=== PATIENT | female | born 1935 | race Hispanic/Latino ===

== ENCOUNTER 2018-08-30 11:50 | Emergency (ER) | payer MEDICARE ==
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
[2018-08-30 13:50] LABS: #Eosinphils 0.1 thou/uL (0.0-0.7); #Lymphocytes 2.3 thou/uL (1.20-3.40); #Monocytes 0.7 thou/uL (0.11-0.59); #Neutrophils 5.9 thou/uL (1.40-6.50); %Basophils 0.4 % (0.0-1.0); %Eosinophils 1.5 % (0.0-10.0); %Lymphocytes 25.4 % (21.0-51.0); %Monocytes 7.6 % (0.0-10.0); %Neutrophils 65.1 % (42.0-75.0); Hemoglobin 15.7 g/dL (12.0-16.0); Mean Corpuscular HGB CONC 32.8 g/dL (32.0-36.0); Mean Corpuscular Hemoglobin 30.1 pg (27.0-31.0); Mean Corpuscular Volume 91.7 fL (78.0-98.0); Mean Platelet Volume 8.8 fL (7.4-10.4); Platelet Count 196 thou/uL (130-400); RBC Distribution Width 12.3 % (11.5-14.5); Red Blood Cell (RBC) Count 5.22 mill/uL (4.20-5.40)
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
[2018-08-30 14:04] LABS: Albumin 4.5 g/dL (3.4-4.8); Anion Gap 13 mmol/L (10-20); Bilirubin, Total 0.5 mg/dL (0.2-1.2); Calcium 9.7 mg/dL (7.8-10.44); Carbon Dioxide 25 mmol/L (23-31); Chloride 107 mmol/L (98-107); Glucose 87 mg/dL (83-110); Potassium 4.2 mmol/L (3.5-5.1); Protein, Total 7.5 g/dL (6.0-8.3); Sodium 141 mmol/L (136-145)
[2018-08-30 14:18] LABS: ALT (SGPT) 20 U/L (8-55); AST (SGOT) 22 U/L (5-34); Alkaline Phosphatase 87 U/L (40-150); BUN (Urea Nitrogen) 15 mg/dL (9.8-20.1); Calc. Creatinine Clearance 0 mL/min (70-130); Estimated GFR-MDRD 73
[2018-08-30 14:47] LABS: Bilirubin Negative (Negative); Blood, Urine Negative (Negative); Clarity CLEAR (Clear); Glucose, Urine (Dipstick) Negative (Negative); Leukocyte Negative (Negative); Nitrite Negative (Negative); Protein, Urine (Dipstick) Negative (Neg-Trace); Specific Gravity, Urine 1.011 (1.002-1.036); Urobilinogen 0.2 mg/dL (0.2-1.0)
--- NOTE | 2018-09-01 13:58 | EKG ---
Test Reason : Blood Pressure : / mmHG Vent. Rate : 067 BPM Atrial Rate : 067 BPM P-R Int : 158 ms QRS Dur : 096 ms QT Int : 406 ms P-R-T Axes : 046 -50 036 degrees QTc Int : 429 ms Normal sinus rhythm Left axis deviation Septal infarct , age undetermined Abnormal ECG Confirmed by MARCEL CASTILLO D.O. ([id number]), film or videotape editor BELLA WILLIS ([id number]) on 09/01/2018 1:58:01 PM Referred By: Confirmed By:MARCEL CASTILLO D.O.
== END 2018-08-30 14:59 | disposition home or self-care (01) ==
LOC: ERS 11:50
DX: S16.1XXA Strain of muscle, fascia and tendon at neck level, initial encounter (principal); M25.562 Pain in left knee; V89.2XXA Person injured in unspecified motor-vehicle accident, traffic, initial encounter
CPT/HCPCS: 36415; 70450; 71045; 72072; 72100; 72125; 72170; 80053; 81003; 83605; 84484; 85025; 87086; 93005

== ENCOUNTER 2020-03-06 04:29 | Inpatient (IN) | payer MEDICARE, MEDICAID ==
--- NOTE | 2020-03-06 04:50 | PDOC.HHP ---
Hospitalist HPI - History of Present Illness Chest pain/ ACS rule out History of Present Illness: Patient with PMH of HTN presents to ED as a transfer for evaluation of chest pain and abdominal pain. Tells me that over the last 1 week she has been having some vague abdominal discomfort. She is unable to fully describe the feeling. Tells me that abdominal discomfort is generalized in nature. She denies any other symptoms such as fever, chills, nausea, vomiting or diarrhea. Yesterday she started experiencing a slightly different feeling with epigastric/ substernal discomfort that radiated to chest. Chest discomfort associated with mild diaphoresis and shortness of breath. Does refer some degree of dyspnea on exertion at bases. Evaluation at transferring facility reveals marginal troponin of 0.025 & repeat trop of 0.05. EKG with non specific changes but no evidence of STEMI. Her vital signs reveal BP in the 170s systolic. Hospitalist ROS - Review of Systems Constitutional: reports: sweats. denies: fever, chills, weakness, malaise Eyes: denies: pain, conjunctivae inflammation, eyelid inflammation ENT: denies: ear pain, ear discharge, nose pain, nose discharge, nose congestion Respiratory: reports: shortness of breath, SOB with excertion. denies: cough, pleuritic pain, sputum Cardiovascular: reports: chest pain. denies: palpitations, orthopnea, paroxysmal noc. dyspnea, edema, light headedness Gastrointestinal: denies: nausea, vomiting, abdominal pain, diarrhea Genitourinary: denies: dysuria, frequency, incontinence, hematuria Musculoskeletal: denies: neck pain, shoulder pain, arm pain, back pain Skin: denies: rash, lesions, francis Neurological: denies: weakness, numbness, incoordination - Exam General Appearance: NAD, awake alert Eye: PERRL, anicteric sclera ENT: normocephalic atraumatic Neck: supple, symmetric, no JVD Heart: RRR, no murmur, no gallops Respiratory: CTAB, no wheezes, no rales, no ronchi Gastrointestinal: soft, no guarding, no rigidity, tender to palpation Gastrointestinal - other findings: Diffuse mild abd tenderness Extremities: negative: no cyanosis, no clubbing, no edema Skin: normal turgor, no lesions Hospitalist Results - Labs Lab results: Troponin 0.025, repeat trop. 0.05. Hospitalist H&P A/P - Plan Plan: Problem List 1. Chest pain 2. Abdominal pain 3. History of hypertension 4. Medication non compliance Assessment/Plan 1. Chest pain - admit for observation/ACS rule out - currently her discomfort appears more localized to abdomen - does have marginal elevation of troponin at 0.05 - no clear evidence of acute ischemia on EKG - will trend cardiac enzymes - check lipid profile and A1C - pending troponin tren will proceed with stress test - check echocardiogram - continue with ASA daily - pending above will consider cardiology consult 2. Abdominal pain - tender abdomen but non surgical - denies any NVD, no fever or chills - Trial of Pepcid - pending progression can consider US 3. History of hypertension - refers having been treated in the hospital in the past for HTN - currently refers taking no medications - BP is currently elevated in the 170s - will restart old medications (amlodipine and losartan) 4. Medication non compliance - she was counseled DVT PPX: Lovenox
[2020-03-06] MEDS ORDERED: Morphine 2 MG/ML SYRINGE SLOW IVP PRN (05:05)
[2020-03-06] MEDS ORDERED: Ondansetron PF 4 MG/2 ML Vial IVP PRN (05:05)
[2020-03-06] MEDS ORDERED: Acetaminophen 325 MG TAB PO PRN (05:05)
[2020-03-06 05:38] LABS: Troponin I 0.087 ng/mL (< 0.028)
[2020-03-06 06:21] VITALS: BMI 30.7
[2020-03-06] MEDS ORDERED: Prevnar 13-Val Conj/PF 0.5 ML SYRINGE IM ONE (06:45)
[2020-03-06 06:56] LABS: Hemoglobin A1c 5.5 % (4.0-6.0)
[2020-03-06] MEDS: Nitroglycerin 2% Ointment 1 INCH/1 GM Packet TOP SCH ×3 (07:11→20:33)
[2020-03-06 07:21] LABS: Cardiac Risk 3.6 (Less than 4.5)
[2020-03-06 07:25] LABS: Troponin I 0.092 ng/mL (< 0.028)
[2020-03-06] MEDS ORDERED: Enoxaparin Sodium 40 MG/0.4 ML SYRINGE SC SCH (09:00)
[2020-03-06] MEDS ORDERED: Aspirin 81 mg Enteric Coated Tablet PO SCH (10:45)
[2020-03-06 11:37] LABS: Troponin I 0.067 ng/mL (< 0.028)
--- NOTE | 2020-03-06 11:43 | CON ---
DATE OF CONSULTATION: REASON FOR CONSULTATION: Chest and abdominal pressure, indeterminate troponin. HISTORY OF PRESENT ILLNESS: Ms. Sales is an 84-year-old woman. The patient states yesterday she had discomfort in her left upper chest, then it went all the way around to her abdomen and then back up into her chest. She came to the emergency room. She is found to have indeterminate troponins. She said she has had some type of similar pain in the past, but much less severe. The patient was here in the hospital. She said 3 years ago, at that time had some symptoms of discomfort, but predominantly she has had severe hypertension, she tells me. Otherwise, she has been active and healthy. MEDICATIONS: At home, she was taking medication for hypertension. The list currently, however, unfortunately is not in the computer. ALLERGIES: TO PENICILLIN. REVIEW OF SYSTEMS: CONSTITUTIONAL: No significant weight gain or loss. VISION: No changes. HEARING: No changes. PULMONARY: No cough or wheezing. GASTROINTESTINAL: No nausea, vomiting, or diarrhea. SKIN: No rashes. NEUROLOGIC: No unilateral or numbness. PSYCHIATRIC: No unusual depression or anxiety. HEMATOLOGIC: No unusual bruising. GENITOURINARY: No burning with urination. SOCIAL HISTORY: No alcohol or tobacco. FAMILY HISTORY: Noncontributory. PHYSICAL EXAMINATION: GENERAL: This is a pleasant elderly woman, in no distress. VITAL SIGNS: Blood pressure 140/66, pulse 52 and sinus. HEENT: Eyes; sclerae are nonicteric. NECK: Neck veins are normal. Carotid with normal upstrokes. LUNGS: Clear. CARDIAC: Normal S1. Normal S2. There is no murmur, rub, or gallop. ABDOMEN: Soft and nontender. No hepatosplenomegaly. EXTREMITIES: No clubbing or cyanosis. There is no edema. HEMATOLOGIC: No unusual bruising. GENITOURINARY: No burning with urination. DIAGNOSTIC DATA: EKG, sinus bradycardia, no acute changes. Troponin levels indeterminate, 0.092. ASSESSMENT: 1. History of hypertension. 2. Chest discomfort suspicious for angina. 3. Indeterminate troponin. PLAN: 1. She is scheduled for stress test for further risk stratification tomorrow. 2. We will add daily aspirin. 3. She is on nitrates. We will follow with you. Job ID: [id number]
[2020-03-06] MEDS: Amlodipine 5 MG TAB PO SCH (12:21)
[2020-03-06] MEDS: Losartan 25 MG TAB PO SCH (12:21)
[2020-03-06] MEDS: Enoxaparin Sodium 40 MG/0.4 ML SYRINGE SC SCH (20:32)
[2020-03-07 04:18] LABS: #Basophils 0.1 thou/uL (0.0-0.2); #Eosinphils 0.2 thou/uL (0.0-0.7); #Lymphocytes 1.7 thou/uL (1.20-3.40); #Monocytes 0.5 thou/uL (0.11-0.59); #Neutrophils 3.9 thou/uL (1.40-6.50); %Basophils 1.3 % (0.0-1.0); %Eosinophils 3.3 % (0.0-10.0); %Lymphocytes 26.8 % (21.0-51.0); %Monocytes 8.2 % (0.0-10.0); %Neutrophils 60.5 % (42.0-75.0); Hemoglobin 14.5 g/dL (12.0-16.0); Mean Corpuscular Hemoglobin 29.5 pg (27.0-31.0); Mean Platelet Volume 9.3 fL (7.4-10.4); Platelet Count 171 thou/uL (130-400); RBC Distribution Width 12.6 % (11.5-14.5); Red Blood Cell (RBC) Count 4.94 mill/uL (4.20-5.40); White Blood Cell (WBC) Count 6.4 thou/uL (4.8-10.8)
[2020-03-07 04:35] LABS: Anion Gap 9 mmol/L (10-20); BUN (Urea Nitrogen) 15 mg/dL (9.8-20.1); Calc. Creatinine Clearance 66 mL/min (70-130); Calcium 8.6 mg/dL (7.8-10.44); Carbon Dioxide 27 mmol/L (23-31); Chloride 107 mmol/L (98-107); Estimated GFR-MDRD 78; Glucose 97 mg/dL (83-110); Potassium 3.9 mmol/L (3.5-5.1); Sodium 139 mmol/L (136-145)
[2020-03-07] MEDS: Nitroglycerin 2% Ointment 1 INCH/1 GM Packet TOP SCH ×3 (05:48→20:28)
[2020-03-07] MEDS ORDERED: Regadenoson 0.4 MG/5 ML SYRINGE ONE (09:15)
--- NOTE | 2020-03-07 12:14 | NM ---
CARDIAC SPECT: CLINICAL HISTORY: 84-year-old female with chest pain. TECHNIQUE: A myocardial perfusion scan was performed using the single isotope one day protocol with technetium-9 9m sestamibi. 10 mCi were injected intravenously for the rest exam followed by 30 mCi for the stress exam. Pharmacologic stress with Lexiscan was monitored and interpreted by Dr. Parmar. FINDINGS: Homogeneous tracer distribution is seen in the myocardial segments on stress and rest images. The TID ratio is 1.50. GATED SPECT LVEF: 79%. WALL MOTION EXAM: Normal. IMPRESSION: TID ratio is 1.50. Clinical correlation is recommended. POS: [facility]
[2020-03-07] MEDS: Amlodipine 5 MG TAB PO SCH (12:19)
[2020-03-07] MEDS: Aspirin 81 mg Enteric Coated Tablet PO SCH (12:22)
[2020-03-07] MEDS: Enoxaparin Sodium 40 MG/0.4 ML SYRINGE SC SCH ×2 (12:23→20:38)
[2020-03-07] MEDS: Losartan 25 MG TAB PO SCH (12:23)
[2020-03-07] MEDS ORDERED: Communication Order-Pharmacy FS SCH (13:00)
--- NOTE | 2020-03-07 13:17 | PRG ---
DATE OF SERVICE: 03/07/2020 SUBJECTIVE: Ms. Sales had a stress testing today. She had a lot of chest pain during the test. There were no EKG changes, but she had to be given aminophylline for resolution of her chest tightness. Her symptoms otherwise have resolved, feels better. OBJECTIVE: VITAL SIGNS: Her blood pressure is 149/70 and pulse is 70. LUNGS: Clear. CARDIAC: Normal S1, normal S2. ABDOMEN: Soft and nontender. DIAGNOSTIC DATA: Stress test revealed homogeneous tracer uptake with a transient ischemic dilatation, 1.5. ASSESSMENT: 1. Abnormal stress test in terms of transient ischemic dilatation and chest pain during the test. 2. Strong risk factors for coronary artery disease. PLAN: Proceed with catheterization on Monday. Discussed risk of stroke, heart attack, iodine allergy, loss of blood supply to leg or kidney, stent thrombosis and stent restenoses, all discussed. The patient and family member understand and wished to proceed. This will be scheduled for Monday. Job ID: [id number]
--- NOTE | 2020-03-07 15:17 | EKG ---
Test Reason : CP Blood Pressure : / mmHG Vent. Rate : 053 BPM Atrial Rate : 053 BPM P-R Int : 160 ms QRS Dur : 080 ms QT Int : 410 ms P-R-T Axes : 027 -44 052 degrees QTc Int : 384 ms Sinus bradycardia Left axis deviation Septal infarct , age undetermined Abnormal ECG Confirmed by JOHN BROWN M.D. ([id number]), assignment desk editor BELLA WILLIS ([id number]) on 03/07/2020 3:16:59 PM Referred By: Confirmed By:JOHN BROWN M.D.
[2020-03-07] MEDS: Rosuvastatin 20 MG TAB PO SCH (20:37)
--- NOTE | 2020-03-07 21:04 | PDOC.HOSPP ---
- Subjective Encounter Date: 03/07/20 - Objective Vital Signs & Weight: Vital Signs (12 hours) Temp Pulse Resp BP BP Pulse Ox 03/07/20 19:00 98.6 F 70 16 120/59 L 96 03/07/20 15:15 97.8 F 69 14 122/59 L 97 03/07/20 12:14 97.9 F 73 18 149/70 H 97 Weight Weight 153 lb 12.8 oz I&O: 03/06/20 03/07/20 03/08/20 06:59 06:59 06:59 Intake Total 480 1600 Output Total 550 Balance -70 1600 Result Diagrams: 03/07/20 04:04 03/07/20 04:04 Hospitalist ROS - Medication Medications: Active Medications Generic Name Dose Route Start Last Admin Trade Name Freq PRN Reason Stop Dose Admin Amlodipine Besylate 2.5 mg 03/06/20 09:00 03/07/20 12:19 Norvasc PO 2.5 mg DAILY ADRIEN Administration Aspirin 81 mg 03/07/20 09:00 03/07/20 12:22 Ecotrin PO 81 mg DAILY ADRIEN Administration Enoxaparin Sodium 40 mg 03/06/20 21:00 03/07/20 20:38 Lovenox SC 03/08/20 21:01 40 mg 0900,2100 ADRIEN Administration Losartan Potassium 12.5 mg 03/06/20 09:00 03/07/20 12:23 Cozaar PO 12.5 mg DAILY ADRIEN Administration Nitroglycerin 0.5 inch 03/06/20 06:00 03/07/20 20:28 Nitro-Bid 2% Ointment TOP Not Given Q8HR ADRIEN Pantoprazole Sodium 40 mg 03/06/20 09:00 03/07/20 12:23 Protonix PO 40 mg DAILY ADRIEN Administration Rosuvastatin Calcium 20 mg 03/07/20 21:00 03/07/20 20:37 Crestor PO 20 mg HS ADRIEN Administration Sodium Chloride 10 ml 03/06/20 09:00 03/07/20 12:24 Flush - Normal Saline IVF 10 ml Q12HR ADRIEN Administration - Exam General Appearance: awake alert ENT: normocephalic atraumatic Neck: supple Heart: RRR Respiratory: normal chest expansion, no tachypnea Gastrointestinal: soft, non-tender, non-distended, normal bowel sounds Hosp A/P (1) Chest pain Code(s): R07.9 - CHEST PAIN, UNSPECIFIED Status: Acute (2) Hypertensive urgency Code(s): I16.0 - HYPERTENSIVE URGENCY Status: Acute (3) Palpitations Code(s): R00.2 - PALPITATIONS Status: Acute - Plan Chest pain with abnormal stress test. Cardiac cath planned on Monday. Continue aspirin, Crestor, enoxaparin, losartan and nitroglycerin.
[2020-03-07] MEDS ORDERED: Nitroglycerin 0.4 MG TAB (25 Tab Bottle) SL PRN (21:06)
[2020-03-08] MEDS: Nitroglycerin 2% Ointment 1 INCH/1 GM Packet TOP SCH ×3 (05:02→20:49)
[2020-03-08] MEDS: Amlodipine 5 MG TAB PO SCH (09:03)
[2020-03-08] MEDS: Aspirin 81 mg Enteric Coated Tablet PO SCH (09:04)
[2020-03-08] MEDS: Enoxaparin Sodium 40 MG/0.4 ML SYRINGE SC SCH ×2 (09:04→20:51)
[2020-03-08] MEDS: Losartan 25 MG TAB PO SCH (09:05)
--- NOTE | 2020-03-08 19:22 | PDOC.HOSPP ---
- Subjective Encounter Date: 03/08/20 Subjective: Denies chest pain or SOB. - Objective Vital Signs & Weight: Vital Signs (12 hours) Temp Pulse Resp BP BP Pulse Ox 03/08/20 15:31 97.6 F 63 18 134/62 98 03/08/20 11:56 98.1 F 82 16 138/68 96 Weight Weight 156 lb 1.6 oz I&O: 03/07/20 03/08/20 03/09/20 06:59 06:59 06:59 Intake Total 480 1840 960 Output Total 550 Balance -70 1840 960 Result Diagrams: 03/07/20 04:04 03/07/20 04:04 Hospitalist ROS - Medication Medications: Active Medications Generic Name Dose Route Start Last Admin Trade Name Sweetie PRN Reason Stop Dose Admin Amlodipine Besylate 2.5 mg 03/06/20 09:00 03/08/20 09:03 Norvasc PO 2.5 mg DAILY ADRIEN Administration Aspirin 81 mg 03/07/20 09:00 03/08/20 09:04 Ecotrin PO 81 mg DAILY ADRIEN Administration Enoxaparin Sodium 40 mg 03/06/20 21:00 03/08/20 09:04 Lovenox SC 03/08/20 21:01 40 mg 0900,2100 ADRIEN Administration Losartan Potassium 12.5 mg 03/06/20 09:00 03/08/20 09:05 Cozaar PO 12.5 mg DAILY ADRIEN Administration Nitroglycerin 0.5 inch 03/06/20 06:00 03/08/20 13:03 Nitro-Bid 2% Ointment TOP Not Given Q8HR ADRIEN Pantoprazole Sodium 40 mg 03/06/20 09:00 03/08/20 09:05 Protonix PO 40 mg DAILY ADRIEN Administration Rosuvastatin Calcium 20 mg 03/07/20 21:00 03/07/20 20:37 Crestor PO 20 mg HS ADRIEN Administration Sodium Chloride 10 ml 03/06/20 09:00 03/08/20 09:06 Flush - Normal Saline IVF 10 ml Q12HR ADRIEN Administration - Exam General Appearance: awake alert ENT: normocephalic atraumatic Neck: supple, no JVD Heart: RRR Respiratory: CTAB Gastrointestinal: soft, non-tender, non-distended, normal bowel sounds Neurological: cranial nerve grossly intact, no focal deficits Hosp A/P (1) Chest pain Code(s): R07.9 - CHEST PAIN, UNSPECIFIED Status: Acute (2) Hypertensive urgency Code(s): I16.0 - HYPERTENSIVE URGENCY Status: Acute (3) Palpitations Code(s): R00.2 - PALPITATIONS Status: Acute - Plan Chest pain with abnormal stress test. Cardiac cath tomorrow. Continue aspirin, Crestor, enoxaparin, losartan and nitroglycerin.
[2020-03-08] MEDS: Rosuvastatin 20 MG TAB PO SCH (20:51)
[2020-03-09 05:05] LABS: Anion Gap 11 mmol/L (10-20); BUN (Urea Nitrogen) 17 mg/dL (9.8-20.1); Calc. Creatinine Clearance 52 mL/min (70-130); Calcium 8.9 mg/dL (7.8-10.44); Carbon Dioxide 27 mmol/L (23-31); Chloride 107 mmol/L (98-107); Estimated GFR-MDRD 60; Glucose 101 mg/dL (83-110); Potassium 3.8 mmol/L (3.5-5.1); Sodium 141 mmol/L (136-145)
[2020-03-09] MEDS: Sodium Chloride 0.9% 1,000 ML IV SCH ×2 (05:17→16:21)
[2020-03-09] MEDS: Nitroglycerin 2% Ointment 1 INCH/1 GM Packet TOP SCH ×3 (05:17→21:35)
[2020-03-09] MEDS: Aspirin 81 mg Enteric Coated Tablet PO SCH (05:18)
[2020-03-09] MEDS: Amlodipine 5 MG TAB PO SCH (05:18)
[2020-03-09] MEDS: Losartan 25 MG TAB PO SCH (05:18)
[2020-03-09] MEDS ORDERED: Nitroglycerin 4.9 GM Bottle ONE (08:56)
[2020-03-09] MEDS ORDERED: Iopamidol 370 76% 100 ML VIAL ONE (09:20)
[2020-03-09] MEDS ORDERED: Sodium Chloride 0.9% 200 ML IV PRN (09:36)
[2020-03-09] MEDS ORDERED: Acetaminophen/Codeine 30-300mg Tablet PO PRN ×2 (09:36)
[2020-03-09] MEDS ORDERED: Nitroglycerin 0.4 MG TAB (25 Tab Bottle) SL PRN (09:36)
[2020-03-09 11:08] LABS: Eosinophils 3 % (0-10); Hemoglobin 14.4 g/dL (12.0-16.0); Lymphocytes 19 % (21-51); MDiff Complete? YES; Mean Corpuscular Hemoglobin 31.4 pg (27.0-31.0); Mean Corpuscular Volume 92.4 fL (78.0-98.0); Mean Platelet Volume 9.3 fL (7.4-10.4); Monocytes 10 % (0-10); Neutrophil 68 % (42-75); Platelet Count 168 thou/uL (130-400); Platelet Morphology Comment Appears Adequate; RBC Distribution Width 12.5 % (11.5-14.5); White Blood Cell (WBC) Count 8.2 thou/uL (4.8-10.8)
--- NOTE | 2020-03-09 15:09 | PDOC.HOSPP ---
- Subjective Encounter Date: 03/09/20 Encounter Time: 14:00 Subjective: Patient seen and examined for CP/USA. No CP. s/p Cath. No new complaints. No overnight events - Objective Vital Signs & Weight: Vital Signs (12 hours) Temp Pulse Resp BP Pulse Ox 03/09/20 12:45 97.9 F 77 18 143/66 H 98 03/09/20 08:01 97.6 F 65 18 136/89 99 03/09/20 05:18 60 03/09/20 03:17 97.5 F L 60 18 139/65 98 Weight Weight 150 lb 14.4 oz I&O: 03/08/20 03/09/20 03/10/20 06:59 06:59 06:59 Intake Total 1840 1370 Balance 1840 1370 Result Diagrams: 03/09/20 04:06 03/09/20 04:06 EKG Reviewed by me: Yes (Tele SR) Hospitalist ROS - Review of Systems Respiratory: denies: cough, dry, shortness of breath, hemoptysis, SOB with excertion, pleuritic pain, sputum, wheezing, other Cardiovascular: denies: chest pain, palpitations, orthopnea, paroxysmal noc. dyspnea, edema, light headedness, other - Medication Medications: Active Medications Generic Name Dose Route Start Last Admin Trade Name Freq PRN Reason Stop Dose Admin Amlodipine Besylate 2.5 mg 03/06/20 09:00 03/09/20 05:18 Norvasc PO 2.5 mg DAILY ADRIEN Administration Aspirin 81 mg 03/07/20 09:00 03/09/20 05:18 Ecotrin PO 81 mg DAILY ADRIEN Administration Sodium Chloride 1,000 mls @ 100 mls/hr 03/09/20 06:00 03/09/20 05:17 Normal Saline 0.9% IV 1,000 mls .Q10H ADRIEN Administration Losartan Potassium 12.5 mg 03/06/20 09:00 03/09/20 05:18 Cozaar PO 12.5 mg DAILY ADRIEN Administration Nitroglycerin 0.5 inch 03/06/20 06:00 03/09/20 05:17 Nitro-Bid 2% Ointment TOP Not Given Q8HR ADRIEN Pantoprazole Sodium 40 mg 03/06/20 09:00 03/09/20 05:18 Protonix PO 40 mg DAILY ADRIEN Administration Rosuvastatin Calcium 20 mg 03/07/20 21:00 03/08/20 20:51 Crestor PO 20 mg HS ADRIEN Administration Sodium Chloride 10 ml 03/06/20 09:00 03/09/20 05:19 Flush - Normal Saline IVF 10 ml Q12HR ADRIEN Administration - Exam General Appearance: NAD Heart: RRR, no gallops Respiratory: no rales, no ronchi Gastrointestinal: non-tender, non-distended, normal bowel sounds Extremities: no cyanosis, no clubbing Neurological: no new deficit Hosp A/P - Plan DVT proph w/lovenox, DVT proph w/SCDs CP Unstable angina Abnormal stress test CAD HTN urgency Obesity BMI 30.5 CKD 2 PLAN: s/p Cath Cont ASA Cont Statins Cont Losartan Cont Amlodipine Cont PPI Await CV input
[2020-03-09] MEDS ORDERED: Communication Order-Pharmacy FS ONE (15:20)
--- NOTE | 2020-03-09 16:16 | RAD ---
EXAM: Single view of the chest HISTORY: Preoperative radiograph prior to open heart surgery COMPARISON: 03/05/2020 FINDINGS: Single view of the chest shows a normal sized cardiomediastinal silhouette. There is no tamiko dence of consolidation, mass, or pleural effusion. The bones are unremarkable. IMPRESSION: No evidence of acute cardiopulmonary disease
--- NOTE | 2020-03-09 17:41 | CON ---
DATE OF CONSULTATION: HISTORY OF PRESENT ILLNESS: Ashli Sales who is an 84-year-old female, who lives in [place], [place], who developed some left chest and abdominal discomfort, prompting a visit to Dr. Stanford in [place], and then transferred here, where she was found to have a slight troponin bump. Her stress test did not really show any ischemia. However, cardiac catheterization today showed a rather severe LAD lesion just after the first diagonal as well as some plaque proximal to the diagonal. PAST MEDICAL HISTORY: Includes hypertension, currently untreated with no history of diabetes mellitus or cholesterol elevation. PAST SURGICAL HISTORY: Related only to childbirth. SOCIAL HISTORY: Nonsmoker and nondrinker. She is this past year. Lives alone. Remains active outside of her house and does have a daughter who lives nearby who can help with her postoperative period. MEDICATIONS: Prior to admission, none. ALLERGIES: NONE. PHYSICAL EXAMINATION: GENERAL: Alert, cooperative lady, in no distress. VITAL SIGNS: Weight 150, height 4 feet 11 inches, heart rate 60 to 70 and regular. NECK: No carotid bruits. LUNGS: Clear to auscultation. CARDIAC: Regular rate and rhythm. No murmurs. ABDOMEN: Soft and nontender. EXTREMITIES: She has palpable dorsalis pedis pulses in both feet. No peripheral edema. NEUROLOGIC: Grossly normal. PLAN: Coronary artery bypass grafting to the LAD and diagonal tomorrow and informed consent has been obtained. Job ID: [id number]
[2020-03-09] MEDS: Rosuvastatin 20 MG TAB PO SCH (21:35)
[2020-03-10] MEDS: Sodium Chloride 0.9% 1,000 ML IV SCH (02:07)
[2020-03-10 04:55] LABS: Band 2 % (5-11); Eosinophils 2 % (0-10); Lymphocytes 17 % (21-51); MDiff Complete? YES; Mean Corpuscular HGB CONC 32.5 g/dL (32.0-36.0); Mean Corpuscular Hemoglobin 29.9 pg (27.0-31.0); Mean Corpuscular Volume 92.1 fL (78.0-98.0); Monocytes 3 % (0-10); Neutrophil 76 % (42-75); Platelet Count 166 thou/uL (130-400); Platelet Morphology Comment Appears Adequate; RBC Distribution Width 12.6 % (11.5-14.5); RBC Morphology Normal; Red Blood Cell (RBC) Count 4.68 mill/uL (4.20-5.40)
[2020-03-10 05:14] LABS: Anion Gap 9 mmol/L (10-20); BUN (Urea Nitrogen) 11 mg/dL (9.8-20.1); Calc. Creatinine Clearance 68 mL/min (70-130); Calcium 8.6 mg/dL (7.8-10.44); Carbon Dioxide 24 mmol/L (23-31); Chloride 112 mmol/L (98-107); Estimated GFR-MDRD 81; Glucose 104 mg/dL (83-110); Potassium 3.7 mmol/L (3.5-5.1); Sodium 141 mmol/L (136-145)
[2020-03-10] MEDS: Losartan 25 MG TAB PO SCH (05:17)
[2020-03-10] MEDS: Nitroglycerin 2% Ointment 1 INCH/1 GM Packet TOP SCH (05:17)
[2020-03-10] MEDS ORDERED: Dexmedetomidine 200 MCG/2 ML VIAL ONE (06:30)
[2020-03-10] MEDS ORDERED: Midazolam HCl 2 mg/2 ml Vial ONE (06:30)
[2020-03-10] MEDS ORDERED: Vecuronium 10 MG VIAL ONE ×2 (06:30→10:23)
[2020-03-10] MEDS ORDERED: Fentanyl 100 MCG/2 ML VIAL ONE (06:30)
[2020-03-10] MEDS ORDERED: Midazolam HCl 5 mg/5 ml Vial ONE (06:30)
[2020-03-10] MEDS ORDERED: Albumin 5% 500 ML ONE (06:31)
[2020-03-10] MEDS ORDERED: Levofloxacin 500 mg/D5W 100 ml Premix Bag ONE (06:39)
[2020-03-10] MEDS ORDERED: Clindamycin/D5W 900 mg/50 ml Premix Bag ONE (06:39)
[2020-03-10] MEDS ORDERED: Heparin 10,000 UNITS/1 ML VIAL 30,000 UNITS in Sodium Chloride 0.9% 1,000 ML FS SCH (06:45)
[2020-03-10] MEDS ORDERED: Insulin Regular 300 UNITS/3 ML VIAL ONE (10:13)
[2020-03-10] MEDS ORDERED: Cardioplegic Soln 1,000 ML BAG ONE (10:23)
[2020-03-10] MEDS ORDERED: Nitroglycerin 50 MG/250 ML BOT ONE (10:23)
[2020-03-10] MEDS ORDERED: Heparin 5,000 UNITS/ML VIAL ONE (10:23)
[2020-03-10] MEDS ORDERED: Lidocaine 1% PF 5 ML VIAL ONE ×2 (10:23)
[2020-03-10] MEDS ORDERED: Lidocaine 2% PF 5 ML VIAL ONE (10:23)
[2020-03-10] MEDS ORDERED: Heparin 30,000 units/30 ml VIAL ONE (10:23)
[2020-03-10] MEDS ORDERED: Ondansetron PF 4 MG/2 ML Vial ONE (10:23)
[2020-03-10] MEDS ORDERED: Sodium Bicarb 50 MEQ/50 ML Abboject 8.4% SYRINGE ONE (10:23)
[2020-03-10] MEDS ORDERED: Glycopyrrolate 0.2 MG/ML 5 ML SYRINGE ONE (10:23)
[2020-03-10] MEDS ORDERED: Calcium Chloride 1 GM/10 ML Abboject SYRINGE ONE (10:23)
[2020-03-10] MEDS ORDERED: Protamine Sulfate 250 MG/25 ML VIAL ONE (10:23)
[2020-03-10] MEDS ORDERED: PHENYLEPHRINE-NS 100 MCG/ML 10 ML SYRINGE ONE (10:23)
[2020-03-10] MEDS ORDERED: Ketorolac Tromethamine 30 MG/ML VIAL ONE (10:23)
[2020-03-10] MEDS ORDERED: Magnesium Sulfate 1 GM/2 ML VIAL ONE (10:23)
[2020-03-10] MEDS ORDERED: Potassium Chloride 60 MEQ/30 ML VIAL ONE (10:23)
[2020-03-10] MEDS ORDERED: Papaverine 60 MG/2 ML VIAL ONE (10:23)
[2020-03-10] MEDS ORDERED: EPHEDRINE 25 MG/5 ML SYRINGE ONE (10:23)
[2020-03-10] MEDS ORDERED: Thrombin 5000 UNITS/5 ML VIAL ONE (10:23)
[2020-03-10] MEDS ORDERED: Aminocaproic Acid 5 GM/20 ML VIAL ONE (10:23)
[2020-03-10] MEDS ORDERED: Hetastarch 6% 500 ML 500 ML IVPB PRN (10:51)
[2020-03-10] MEDS ORDERED: Acetaminophen 325 MG TAB PO PRN (10:51)
[2020-03-10] MEDS ORDERED: Magnesium 2 GM/50 ML 2 GM in Premix Bag 1 BAG IVPB SCH (10:51)
[2020-03-10] MEDS ORDERED: Bisacodyl 5 MG TAB PO PRN (10:51)
[2020-03-10] MEDS ORDERED: Bisacodyl 10 MG SUPP PR PRN (10:51)
[2020-03-10] MEDS ORDERED: Fentanyl 100 MCG/2 ML VIAL SLOW IVP PRN ×2 (10:51)
[2020-03-10] MEDS ORDERED: hydrALAZINE 20 MG/ML VIAL SLOW IVP PRN (10:51)
[2020-03-10] MEDS ORDERED: Mag-Al 1200 mg/1200 mg/30 ML UDCUP PO PRN (10:51)
[2020-03-10] MEDS ORDERED: DOPamine 400 MG/D5W 250 ML 250 ML IVPB PRN (10:51)
[2020-03-10] MEDS ORDERED: Guaifenesin DM 100-10/5 ML UDCUP PO PRN (10:51)
[2020-03-10] MEDS ORDERED: niCARdipine 25 MG in Sodium Chloride 0.9% 250 ML 240 ML IVPB PRN (10:51)
[2020-03-10] MEDS ORDERED: Ondansetron PF 4 MG/2 ML Vial IVP PRN (10:51)
[2020-03-10] MEDS ORDERED: Nitroglycerin 50 MG/250 ML BOT 250 ML IVPB PRN (10:51)
[2020-03-10] MEDS ORDERED: Post-Op Insulin Drip Protocol IVPB ONE (10:51)
[2020-03-10] MEDS ORDERED: Morphine 2 MG/ML SYRINGE SLOW IVP PRN (10:51)
[2020-03-10] MEDS ORDERED: Potassium Chloride 20 MEQ/100 ML PREMIX BAG IVPB PRN (10:51)
[2020-03-10] MEDS ORDERED: Dextrose 5% in Water 1,000 ML IV PRN (11:08)
[2020-03-10] MEDS ORDERED: HUMULIN R 100 UNITS in Sodium Chloride 0.9% 100 ML IVPB SCH (11:08)
[2020-03-10] MEDS ORDERED: Dextrose 50% Abboject 50 ML SYRINGE SLOW IVP PRN (11:08)
[2020-03-10] MEDS: Clindamycin/D5W 900 MG in Premix Bag 1 BAG IVPB SCH ×3 (11:38→23:46)
[2020-03-10] MEDS: Lactated Ringer's 1,000 ML IV SCH ×2 (11:38→23:47)
[2020-03-10] MEDS: Ketorolac Tromethamine 30 MG/ML VIAL IVP SCH ×3 (11:39→23:46)
--- NOTE | 2020-03-10 11:40 | RAD ---
RADIOGRAPH CHEST 1 VIEW: DATE: 03/10/2020 TIME: 11:35 AM HISTORY: 84-year-old female status post open heart surgery COMPARISON: 03/09/2020 FINDINGS: All of the following are new since the prior study: Sternotomy wires, right subclavian central line with tip deep in right atrium, ascending midline ches t tubes, distal tips one of them arching over left apex and the other remaining at midline. No consolidation or pulmonary edema. IMPRESSION: Very recently status post coronary artery bypass graft surgery.
[2020-03-10] MEDS: Insulin Regular 300 UNITS/3 ML VIAL SC PRN ×3 (11:43→21:13)
[2020-03-10 11:57] LABS: #Eosinphils 0.2 thou/uL (0.0-0.7); #Lymphocytes 1.3 thou/uL (1.20-3.40); #Monocytes 0.8 thou/uL (0.11-0.59); #Neutrophils 11.8 thou/uL (1.40-6.50); %Basophils 0.2 % (0.0-1.0); %Eosinophils 1.1 % (0.0-10.0); %Lymphocytes 9.4 % (21.0-51.0); %Monocytes 5.5 % (0.0-10.0); %Neutrophils 83.9 % (42.0-75.0); Mean Corpuscular HGB CONC 32.2 g/dL (32.0-36.0); Mean Corpuscular Hemoglobin 29.8 pg (27.0-31.0); Mean Corpuscular Volume 92.7 fL (78.0-98.0); Mean Platelet Volume 9.3 fL (7.4-10.4); Platelet Count 119 thou/uL (130-400); RBC Distribution Width 12.5 % (11.5-14.5); Red Blood Cell (RBC) Count 4.01 mill/uL (4.20-5.40)
[2020-03-10 12:10] LABS: Anion Gap 8 mmol/L (10-20); BUN (Urea Nitrogen) 8 mg/dL (9.8-20.1); Calc. Creatinine Clearance 78 mL/min (70-130); Calcium 7.2 mg/dL (7.8-10.44); Carbon Dioxide 24 mmol/L (23-31); Chloride 115 mmol/L (98-107); Estimated GFR-MDRD 90; Glucose 138 mg/dL (83-110); Potassium 4.2 mmol/L (3.5-5.1); Sodium 143 mmol/L (136-145)
[2020-03-10 12:25] LABS: INR-International Normal Ratio 1.3; PTT 32.1 sec (22.9-36.1); Prothrombin Time 16.2 sec (12.0-14.7)
[2020-03-10] MEDS: HYDROcodone/Acetaminophen 5/325 mg Tablet PO PRN (15:59)
[2020-03-10 16:38] LABS: Hemoglobin 12.5 g/dL (12.0-16.0)
[2020-03-10] MEDS: Atorvastatin Calcium 10 MG TAB PO SCH (20:55)
[2020-03-10] MEDS ORDERED: Famotidine/PF 20 mg/2ml Vial SLOW IVP SCH (21:00)
[2020-03-11 04:22] LABS: #Lymphocytes 0.9 thou/uL (1.20-3.40); #Monocytes 0.9 thou/uL (0.11-0.59); #Neutrophils 8.7 thou/uL (1.40-6.50); %Basophils 0.2 % (0.0-1.0); %Eosinophils 0.1 % (0.0-10.0); %Lymphocytes 8.9 % (21.0-51.0); %Monocytes 8.6 % (0.0-10.0); %Neutrophils 82.2 % (42.0-75.0); Mean Corpuscular HGB CONC 34.2 g/dL (32.0-36.0); Mean Corpuscular Hemoglobin 31.5 pg (27.0-31.0); Mean Corpuscular Volume 92.2 fL (78.0-98.0); Mean Platelet Volume 9.6 fL (7.4-10.4); Platelet Count 125 thou/uL (130-400); RBC Distribution Width 12.5 % (11.5-14.5); Red Blood Cell (RBC) Count 3.49 mill/uL (4.20-5.40); White Blood Cell (WBC) Count 10.6 thou/uL (4.8-10.8)
[2020-03-11 04:45] LABS: Anion Gap 9 mmol/L (10-20); BUN (Urea Nitrogen) 9 mg/dL (9.8-20.1); Calc. Creatinine Clearance 77 mL/min (70-130); Calcium 7.9 mg/dL (7.8-10.44); Carbon Dioxide 25 mmol/L (23-31); Chloride 110 mmol/L (98-107); Estimated GFR-MDRD 89; Glucose 106 mg/dL (83-110); Potassium 3.9 mmol/L (3.5-5.1); Sodium 140 mmol/L (136-145)
[2020-03-11] MEDS: Ketorolac Tromethamine 30 MG/ML VIAL IVP SCH (05:28)
[2020-03-11] MEDS: Clindamycin/D5W 900 MG in Premix Bag 1 BAG IVPB SCH (05:29)
--- NOTE | 2020-03-11 06:20 | OP ---
DATE OF PROCEDURE: 03/10/2020 PREOPERATIVE DIAGNOSIS: Coronary artery disease. PROCEDURE PERFORMED: Coronary artery bypass graft x2: Left internal mammary artery, small, but good quality to a 1.25 mm LAD, where it became extra-myocardial; saphenous vein good quality to a 1.25 mm diagonal. NAIL MAKER: Everardo Liu MD TRANSFUSION: None. DESCRIPTION OF PROCEDURE: After adequate anesthesia had been obtained, the patient was prepped and draped. Dr. Liu did an open vein harvest of the left greater saphenous vein and I performed a median sternotomy. Left internal mammary artery was harvested, entering the pleura in one small area. Heparin was given. The mammary divided distally and passed posterior to the thymus gland. An incision was made in the pericardium to allow it to lie directly toward the LAD. Aorta and right atrium were cannulated. Cardiopulmonary bypass begun. Following completion of inspection of vessels, the aorta was crossclamped and a liter of cold [place] cardioplegic solution was given. Two distal anastomoses completed. Mammary pedicle was secured to the myocardium. The cross-clamp was removed. Partial occluding clamp placed and the vein anastomosis completed on the aortic root and marked with a ring. The patient was then weaned from cardiopulmonary bypass after placement of temporary atrial pacing wires, which were utilized for a few minutes. The cannulas were removed and the aortic cannulation site was secured with a 4-0 Prolene suture. Mediastinal and left pleural drains were placed and the sternum was reapproximated with #7 interrupted wire using vancomycin paste on the sternal edges, platelet-rich blood and platelet-poor plasma. Subcutaneous tissue and skin were closed in layers and the patient was to be taken to the ICU in guarded condition. Job ID: [id number]
[2020-03-11] MEDS ORDERED: Mineral Oil ENEMA PR PRN (07:11)
[2020-03-11] MEDS ORDERED: Mag-Al 1200 mg/1200 mg/30 ML UDCUP PO PRN (07:11)
[2020-03-11] MEDS ORDERED: Acetaminophen 325 MG TAB PO PRN (07:11)
[2020-03-11] MEDS ORDERED: Guaifenesin DM 100-10/5 ML UDCUP PO PRN (07:11)
[2020-03-11] MEDS ORDERED: Nitroglycerin 0.4 MG TAB (25 Tab Bottle) SL PRN (07:11)
[2020-03-11] MEDS ORDERED: Bisacodyl 10 MG SUPP PR PRN (07:11)
--- NOTE | 2020-03-11 07:43 | RAD ---
CHEST 1 VIEW: INDICATION: History of open heart surgery. COMPARISON: Prior exam dated 03/10/2020. FINDINGS: Left-sided thoracostomy tube, right subclavian central venous catheter, midline mediastinal drain, an d midline sternotomy is similar-appearing. Mild cardiomegaly and pulmonary vascular congestion is st able. There is worsening opacity in the left lower lobe that may reflect worsening atelectasis. No pneumothorax is evident. Right lung is clear. Osseous structures reveal no acute abnormality. IMPRESSION: 1. Worsening opacity in the left lower lobe may reflect subsegmental volume loss. Component of aspi ration or pneumonia cannot be entirely excluded. Continued followup is recommended. 2. Stable tubes and lines. 3. Stable cardiomegaly. POS: [facility]
[2020-03-11] MEDS ORDERED: Potassium Chloride 20 MEQ/100 ML PREMIX BAG IVPB PRN (07:51)
[2020-03-11] MEDS: Polyethylene Glycol 3350 17 GM Packet PO SCH (07:55)
[2020-03-11] MEDS: Lisinopril 5 MG TAB PO SCH (07:55)
[2020-03-11] MEDS: Aspirin 325 mg Enteric Coated Tablet PO SCH (07:55)
[2020-03-11] MEDS ORDERED: Aspirin Chewable 81 MG TAB PO SCH (09:00)
--- NOTE | 2020-03-11 09:09 | PRG ---
DATE OF SERVICE: 03/11/2020 SUBJECTIVE: Ms. Sales underwent 2-vessel bypass yesterday. She feels well. She is sitting up in the chair and looks quite well. OBJECTIVE: VITAL SIGNS: Blood pressure 115/52 and pulse 90. LUNGS: Clear. CARDIAC: Normal S1 and normal S2. ABDOMEN: Soft and nontender. ASSESSMENT: Status post coronary artery bypass grafting x2, internal mammary to the left anterior descending, vein graft to the diagonal. The patient is doing well. Transferred to telemetry. Job ID: [id number]
--- NOTE | 2020-03-11 09:11 | PDOC.HOSPP ---
- Subjective Encounter Date: 03/10/20 Encounter Time: 18:00 Subjective: Patient seen and examined for CAD/Chest pain. Extubated. No new complaints. No overnight events - Objective Vital Signs & Weight: Vital Signs (12 hours) Temp Pulse BP Pulse Ox 03/11/20 08:00 100 03/11/20 07:55 91 115/62 03/11/20 07:00 98.3 F 03/11/20 04:00 98.7 F 03/11/20 00:00 98.2 F Weight Weight 157 lb 13.616 oz Most Recent Monitor Data Heart Rate from ECG 79 NIBP 115/52 NIBP BP-Mean 73 Respiration from ECG 24 SpO2 99 I&O: 03/10/20 03/11/20 03/12/20 06:59 06:59 06:59 Intake Total 1320 2022.6 300 Output Total 1405 105 Balance 1320 617.6 195 Result Diagrams: 03/11/20 04:00 03/11/20 04:00 Additional Labs: Accuchecks 03/11/20 03/10/20 03/10/20 04:07 23:59 20:06 POC Glucose 100 119 H 138 H 03/10/20 03/10/20 03/10/20 16:24 11:35 10:48 POC Glucose 145 H 136 H 134 H 03/10/20 03/10/20 03/10/20 10:15 09:53 09:31 POC Glucose 177 H 159 H 153 H 03/10/20 08:15 POC Glucose 136 H EKG Reviewed by me: Yes (Tele SR) Hospitalist ROS - Review of Systems Cardiovascular: denies: chest pain, palpitations, orthopnea, paroxysmal noc. dyspnea, edema, light headedness, other Gastrointestinal: denies: nausea, vomiting, abdominal pain, diarrhea, constipation, melena, hematochezia, other - Medication Medications: Active Medications Generic Name Dose Route Start Last Admin Trade Name Freq PRN Reason Stop Dose Admin Hydrocodone Bitart/Acetaminophen 2 tab 03/10/20 10:51 03/10/20 15:59 [place] 5/325 PO 2 tab Q4H PRN Administration Severe Pain (7-10) Aspirin 325 mg 03/11/20 09:00 03/11/20 07:55 Ecotrin PO 325 mg DAILY ADRIEN Administration Atorvastatin Calcium 10 mg 03/10/20 21:00 06/23/20 20:55 Lipitor PO 10 mg QPM ADRIEN Administration Fentanyl 25 mcg 03/10/20 10:51 03/10/20 13:47 Sublimaze SLOW IVP 03/12/20 10:39 25 mcg Q2H PRN Administration Moderate Pain (4-6) Lisinopril 5 mg 03/11/20 09:00 03/11/20 07:55 Zestril PO 5 mg DAILY ADRIEN Administration Pantoprazole Sodium 40 mg 03/11/20 09:00 03/11/20 07:55 Protonix PO 40 mg 0900 ADRIEN Administration Polyethylene Glycol 17 gm 03/11/20 09:00 03/11/20 07:55 Miralax PO 17 gm DAILY ADRIEN Administration - Exam General Appearance: NAD Neck: supple, no JVD Heart: RRR, no gallops Respiratory: no wheezes, no rales Gastrointestinal: soft, non-tender, normal bowel sounds Extremities: no cyanosis Neurological: no new deficit Hosp A/P - Plan DVT proph w/SCDs CP Unstable angina Abnormal stress test CAD s/p CABG 03/10 HTN urgency Obesity BMI 30.5 CKD 2 PLAN: Cont ASA Cont Statins Cont supportive care AM labs Cont CCU monitoring
[2020-03-11] MEDS: HYDROcodone/Acetaminophen 5/325 mg Tablet PO PRN ×2 (15:05→21:49)
--- NOTE | 2020-03-11 19:24 | PDOC.HOSPP ---
- Subjective Encounter Date: 03/11/20 Encounter Time: 18:00 Subjective: Patient seen and examined for CP/CAD. No new CP. No new complaints. No overnight events - Objective Vital Signs & Weight: Vital Signs (12 hours) Temp Pulse Pulse Pulse Resp BP BP 03/11/20 14:59 99.1 F 83 03/11/20 14:57 86 88 120/58 L 03/11/20 11:52 98.6 F 87 03/11/20 10:28 03/11/20 09:10 98.9 F 86 18 03/11/20 08:00 03/11/20 07:55 91 115/62 BP BP BP Pulse Ox Pulse Ox Pulse Ox 03/11/20 14:59 120/58 L 94 L 03/11/20 14:57 128/61 94 L 96 03/11/20 11:52 136/60 93 L 03/11/20 10:28 100 03/11/20 09:10 136/62 100 03/11/20 08:00 100 03/11/20 07:55 Weight Weight 157 lb 13.616 oz Most Recent Monitor Data Heart Rate from ECG 79 NIBP 115/52 NIBP BP-Mean 73 Respiration from ECG 24 SpO2 99 I&O: 03/10/20 03/11/20 03/12/20 06:59 06:59 06:59 Intake Total 1320 2022.6 420 Output Total 1405 2005 Balance 1320 617.6 -1585 Result Diagrams: 03/11/20 04:00 03/11/20 04:00 Additional Labs: Accuchecks 03/11/20 03/11/20 03/10/20 04:07 01:19 23:59 POC Glucose 100 167 H 119 H 03/10/20 03/10/20 20:06 08:15 POC Glucose 138 H 136 H EKG Reviewed by me: Yes (Tele SR) Hospitalist ROS - Review of Systems Cardiovascular: denies: chest pain, palpitations, orthopnea, paroxysmal noc. dyspnea, edema, light headedness, other Gastrointestinal: denies: nausea, vomiting, abdominal pain, diarrhea, constipation, melena, hematochezia, other - Medication Medications: Active Medications Generic Name Dose Route Start Last Admin Trade Name Freq PRN Reason Stop Dose Admin Hydrocodone Bitart/Acetaminophen 1 tab 03/10/20 10:51 03/11/20 15:05 [place] 5/325 PO 1 tab Q4H PRN Administration Moderate Pain (4-6) Hydrocodone Bitart/Acetaminophen 2 tab 03/10/20 10:51 03/10/20 15:59 [place] 5/325 PO 2 tab Q4H PRN Administration Severe Pain (7-10) Aspirin 325 mg 03/11/20 09:00 03/11/20 07:55 Ecotrin PO 325 mg DAILY ADRIEN Administration Atorvastatin Calcium 10 mg 03/10/20 21:00 03/10/20 20:55 Lipitor PO 10 mg QPM ADRIEN Administration Fentanyl 25 mcg 03/10/20 10:51 03/10/20 13:47 Sublimaze SLOW IVP 03/12/20 10:39 25 mcg Q2H PRN Administration Moderate Pain (4-6) Lisinopril 5 mg 03/11/20 09:00 03/11/20 07:55 Zestril PO 5 mg DAILY ADRIEN Administration Pantoprazole Sodium 40 mg 03/11/20 09:00 03/11/20 07:55 Protonix PO 40 mg 0900 ADRIEN Administration Polyethylene Glycol 17 gm 03/11/20 09:00 03/11/20 07:55 Miralax PO 17 gm DAILY ADRIEN Administration - Exam General Appearance: NAD Heart: RRR, no gallops Respiratory: no wheezes, no ronchi Gastrointestinal: non-tender, non-distended, normal bowel sounds Extremities: no cyanosis, no clubbing Neurological: no new deficit Psychiatric: A&O x 3 Hosp A/P - Plan DVT proph w/SCDs CP/Unstable angina Abnormal stress test CAD s/p CABG 03/10 HTN urgency Obesity BMI 30.5 CKD 2 PLAN: Cont ASA/Statins Gentle diuresis GI prophylaxis Cardiac rehab Cont supportive care
[2020-03-11] MEDS: Atorvastatin Calcium 10 MG TAB PO SCH (21:49)
[2020-03-12] MEDS: Lisinopril 5 MG TAB PO SCH (07:40)
[2020-03-12] MEDS: Potassium Chloride 10 MEQ TAB PO SCH (07:40)
[2020-03-12] MEDS: Furosemide 40 MG TAB PO SCH (07:40)
[2020-03-12] MEDS: Polyethylene Glycol 3350 17 GM Packet PO SCH (07:40)
[2020-03-12] MEDS: Aspirin 325 mg Enteric Coated Tablet PO SCH (07:40)
[2020-03-12] MEDS: Enoxaparin Sodium 30 MG/0.3 ML SYRINGE SC SCH (07:41)
--- NOTE | 2020-03-12 10:08 | PRG ---
DATE OF SERVICE: 03/12/2020 SUBJECTIVE: Ms. Sales has been up walking in the [place]. She has been feeling better. No complaints. OBJECTIVE: VITAL SIGNS: Blood pressure 128/58, pulse 80 and it is regular. LUNGS: Clear. CARDIAC: Normal S1, normal S2. ABDOMEN: Soft and nontender. MEDICATIONS: The patient is on: 1. Low-dose enoxaparin. 2. Aspirin. 3. Atorvastatin. 4. Lisinopril. ASSESSMENT: Status post bypass surgery, left anterior descending artery, diagonal, doing quite well. PLAN: Continue current medical regimen and activity. Home soon. Job ID: [id number]
--- NOTE | 2020-03-12 10:20 | PDOC.HOSPP ---
- Subjective Encounter Date: 03/12/20 Encounter Time: 12:00 Subjective: Patient seen and examined for CP. Pain controlled. Chest tube dced. No new complaints. No overnight events - Objective Vital Signs & Weight: Vital Signs (12 hours) Temp Pulse Resp BP BP Pulse Ox 03/12/20 07:27 98.3 F 81 18 128/58 L 96 03/12/20 04:00 97.5 F L 80 18 120/58 L 94 L Weight Weight 154 lb 6 oz Most Recent Monitor Data Heart Rate from ECG 79 NIBP 115/52 NIBP BP-Mean 73 Respiration from ECG 24 SpO2 99 I&O: 03/11/20 03/12/20 03/13/20 06:59 06:59 06:59 Intake Total 2.6 470 Output Total 1405 2530 Balance 617.6 -2060 Result Diagrams: 03/11/20 04:00 03/11/20 04:00 EKG Reviewed by me: Yes (Tele SR) Hospitalist ROS - Review of Systems Respiratory: denies: cough, dry, shortness of breath, hemoptysis, SOB with excertion, pleuritic pain, sputum, wheezing, other Cardiovascular: denies: chest pain, palpitations, orthopnea, paroxysmal noc. dyspnea, edema, light headedness, other Gastrointestinal: reports: constipation. denies: nausea, vomiting, abdominal pain, diarrhea, melena, hematochezia, other - Medication Medications: Active Medications Generic Name Dose Route Start Last Admin Trade Name Freq PRN Reason Stop Dose Admin Hydrocodone Bitart/Acetaminophen 1 tab 03/10/20 10:51 03/11/20 15:05 [place] 5/325 PO 1 tab Q4H PRN Administration Moderate Pain (4-6) Hydrocodone Bitart/Acetaminophen 2 tab 03/10/20 10:51 03/11/20 21:49 [place] 5/325 PO 2 tab Q4H PRN Administration Severe Pain (7-10) Aspirin 325 mg 03/11/20 09:00 03/12/20 07:40 Ecotrin PO 325 mg DAILY ADRIEN Administration Atorvastatin Calcium 10 mg 03/10/20 21:00 03/11/20 21:49 Lipitor PO 10 mg QPM ADRIEN Administration Enoxaparin Sodium 30 mg 03/12/20 09:00 03/12/20 07:41 Lovenox SC 30 mg 0900 ADRIEN Administration Fentanyl 25 mcg 03/10/20 10:51 03/10/20 13:47 Sublimaze SLOW IVP 03/12/20 10:39 25 mcg Q2H PRN Administration Moderate Pain (4-6) Furosemide 40 mg 03/12/20 09:00 03/12/20 07:40 Lasix PO 40 mg DAILY ADRIEN Administration Lisinopril 5 mg 03/11/20 09:00 03/12/20 07:40 Zestril PO 5 mg DAILY ADRIEN Administration Pantoprazole Sodium 40 mg 03/11/20 09:00 03/12/20 07:40 Protonix PO 40 mg 00 ADRIEN Administration Polyethylene Glycol 17 gm 03/11/20 09:00 03/12/20 07:40 Miralax PO 17 gm DAILY ADRIEN Administration Potassium Chloride 10 meq 03/12/20 08:00 03/12/20 07:40 Klor-Con 10 PO 10 meq QAM-WM ADRIEN Administration - Exam General Appearance: NAD Heart: RRR, no gallops Respiratory: no wheezes, no ronchi Gastrointestinal: non-tender, non-distended, normal bowel sounds Extremities: no cyanosis, no clubbing Neurological: no new deficit Hosp A/P - Plan DVT proph w/SCDs CP/Unstable angina Abnormal stress test CAD s/p CABG 03/10 HTN urgency Obesity BMI 30.5 CKD 2 Constipation PLAN: Cont ASA/Statins Cont Lasix with potassium Cont cardiac rehab DVT/GI prophylaxis Cont supportive care HHC eval cont Miralax
[2020-03-12] MEDS: Bisacodyl 5 MG TAB PO PRN (11:13)
[2020-03-12] MEDS: HYDROcodone/Acetaminophen 5/325 mg Tablet PO PRN ×2 (14:35→22:58)
--- NOTE | 2020-03-12 17:40 | EKG ---
Test Reason : POS T CABG Blood Pressure : / mmHG Vent. Rate : 069 BPM Atrial Rate : 069 BPM P-R Int : 186 ms QRS Dur : 084 ms QT Int : 444 ms P-R-T Axes : 045 -53 105 degrees QTc Int : 475 ms Normal sinus rhythm Left axis deviation Inferior infarct , age undetermined Abnormal ECG When compared with ECG of 06-MAR-2020 04:42, Criteria for Septal infarct are no longer Present QT has lengthened Confirmed by DR. Edmond TORREZ ([id number]) on 03/12/2020 5:39:53 PM Referred By: EAGLE Confirmed By:DR. Edmond TORREZ
[2020-03-12] MEDS: Atorvastatin Calcium 10 MG TAB PO SCH (19:59)
[2020-03-13] MEDS ORDERED: Dronedarone HCl 400 MG TAB PO SCH ×2 (06:00→21:00)
[2020-03-13] MEDS: Enoxaparin Sodium 30 MG/0.3 ML SYRINGE SC SCH (08:45)
[2020-03-13] MEDS: Aspirin 325 mg Enteric Coated Tablet PO SCH (08:45)
[2020-03-13] MEDS: Furosemide 40 MG TAB PO SCH (08:45)
[2020-03-13] MEDS: Lisinopril 5 MG TAB PO SCH (08:45)
[2020-03-13] MEDS: Polyethylene Glycol 3350 17 GM Packet PO SCH (08:45)
[2020-03-13] MEDS: Potassium Chloride 10 MEQ TAB PO SCH (08:45)
--- NOTE | 2020-03-13 09:21 | PDOC.HOSPP ---
- Subjective Encounter Date: 03/13/20 Encounter Time: 10:45 Subjective: Patient seen and examined for CP/[place]. New rash over the left forehead with some eye irritation. No focal deficits. No new complaints. No overnight events - Objective Vital Signs & Weight: Vital Signs (12 hours) Temp Pulse Resp BP BP Pulse Ox 03/13/20 08:45 85 116/62 03/13/20 07:41 98.5 F 94 18 105/58 L 95 03/13/20 04:00 98.0 F 84 18 121/57 L 95 Weight Weight 152 lb 3 oz Most Recent Monitor Data Heart Rate from ECG 79 NIBP 115/52 NIBP BP-Mean 73 Respiration from ECG 24 SpO2 99 I&O: 03/12/20 03/13/20 03/14/20 06:59 06:59 06:59 Intake Total 470 1490 Output Total 2530 950 Balance -2059 540 Result Diagrams: 03/11/20 04:00 03/11/20 04:00 EKG Reviewed by me: Yes (Tele SR) Hospitalist ROS - Review of Systems Respiratory: denies: cough, dry, shortness of breath, hemoptysis, SOB with excertion, pleuritic pain, sputum, wheezing, other Cardiovascular: denies: chest pain, palpitations, orthopnea, paroxysmal noc. dyspnea, edema, light headedness, other - Medication Medications: Active Medications Generic Name Dose Route Start Last Admin Trade Name Freq PRN Reason Stop Dose Admin Hydrocodone Bitart/Acetaminophen 1 tab 03/10/20 10:51 03/12/20 14:35 [place] 5/325 PO 1 tab Q4H PRN Administration Moderate Pain (4-6) Hydrocodone Bitart/Acetaminophen 2 tab 03/10/20 10:51 03/12/20 22:58 [place] 5/325 PO 2 tab Q4H PRN Administration Severe Pain (7-10) Aspirin 325 mg 03/11/20 09:00 03/13/20 08:45 Ecotrin PO 325 mg DAILY ADRIEN Administration Atorvastatin Calcium 10 mg 03/10/20 21:00 03/12/20 19:59 Lipitor PO 10 mg QPM ADRIEN Administration Bisacodyl 10 mg 03/11/20 07:11 03/12/20 11:13 Dulcolax PO 10 mg Q12H PRN Administration Constipation Enoxaparin Sodium 30 mg 03/12/20 09:00 03/13/20 08:45 Lovenox SC 30 mg 09 ADRIEN Administration Furosemide 40 mg 03/12/20 09:00 03/13/20 08:45 Lasix PO 40 mg DAILY ADRIEN Administration Lisinopril 5 mg 03/11/20 09:00 03/13/20 08:45 Zestril PO 5 mg DAILY ADRIEN Administration Pantoprazole Sodium 40 mg 03/11/20 09:00 03/13/20 08:45 Protonix PO 40 mg 899 ADRIEN Administration Polyethylene Glycol 17 gm 03/11/20 09:00 03/13/20 08:45 Miralax PO 17 gm DAILY ADRIEN Administration Potassium Chloride 10 meq 03/12/20 08:00 03/13/20 08:45 Klor-Con 10 PO 10 meq QAM-WM ADRIEN Administration - Exam General Appearance: NAD Eye: PERRL Eye - other findings: no conjunctival erythema ENT: normocephalic atraumatic ENT - other findings: scattered erythematous rash over the Rt forehead Neck: supple, no JVD Heart: RRR, no gallops, no rubs Respiratory: no wheezes, no rales, normal chest expansion Gastrointestinal: soft, non-tender, non-distended Neurological: no new deficit Hosp A/P - Plan DVT proph w/SCDs CP/Unstable angina Herpes Zoster (new diagnosis) New onset Afib -> SR Abnormal stress test CAD s/p CABG 03/10 HTN urgency Obesity BMI 30.5 CKD 2 Constipation PLAN: Add Valtrex Add artificial tears Monitor Cr while on Valtrex Consult Ophthalmology to r/o corneal involvement Cont ASA/Statins Cont Lisinopril Started on Multaq Gentle diuresis Cont cardiac rehab DVT/GI prophylaxis Cont supportive care
--- NOTE | 2020-03-13 09:31 | PRG ---
DATE OF SERVICE: 03/13/2020 SUBJECTIVE: Ms. Hood does not feel well today. Has more fatigue. Denies nausea. She did have some atrial fibrillation early this morning. She received one dose of Multaq. She is in sinus rhythm now. OBJECTIVE: VITAL SIGNS: Blood pressure 105/58, pulse 94 and regular. LUNGS: Clear. CARDIAC: Normal S1, normal S2. ABDOMEN: Soft and nontender. EXTREMITIES: No edema. ASSESSMENT: 1. Previous bypass surgery. 2. Brief atrial arrhythmias. PLAN: 1. Continue to use beta blockers. 2. Stop further Multaq, maybe making her stomach upset. 3. Give her some potassium later today. Hopefully home tomorrow if doing well. Job ID: [id number]
[2020-03-13] MEDS: Bisacodyl 5 MG TAB PO PRN (09:45)
[2020-03-13] MEDS ORDERED: Artificial Tears 18 DROP/0.9 ML EA EYE PRN (10:32)
[2020-03-13] MEDS ORDERED: valACYclovir 500 MG TAB PO SCH (10:45)
[2020-03-13 11:09] LABS: Actual Bicarbonate (HCO3a) 20.6 mEq/L (22-28); Analyzer IN Cardio OR; Base Excess (BEa) -1.1 mEq/L (-2.0 to +3.0); CO2 Tension 26.8 mmHg (35.0-45.0); Calcium, Ionized (arterial) 1.11 mmol/L (1.12-1.30); Carboxyhemoglobin (COHb) 0.6 gm% (0.0-3.0); Hemoglobin (Hb) 13.7 g/dL (12.0-16.0); O2 Tension (PaO2), arterial 472.9 mmHg (> 60.0); Potassium - ABG Lab 4.07 mmol/L (3.70-5.30)
[2020-03-13 11:10] LABS: Actual Bicarbonate (HCO3a) 17.4 mEq/L (22-28); Analyzer IN Cardio OR; Base Excess (BEa) -4.9 mEq/L (-2.0 to +3.0); Calcium, Ionized (arterial) 0.93 mmol/L (1.12-1.30); Carboxyhemoglobin (COHb) 0.2 gm% (0.0-3.0); Hemoglobin (Hb) 9.1 g/dL (12.0-16.0); O2 Tension (PaO2), arterial 406.7 mmHg (> 60.0); Potassium - ABG Lab 4.73 mmol/L (3.70-5.30); pH, Arterial 7.49 (7.35-7.45)
[2020-03-13 11:11] LABS: Actual Bicarbonate (HCO3a) 22.6 mEq/L (22-28); Analyzer IN Cardio OR; Base Excess (BEa) -0.7 mEq/L (-2.0 to +3.0); CO2 Tension 32.1 mmHg (35.0-45.0); Calcium, Ionized (arterial) 0.93 mmol/L (1.12-1.30); Hemoglobin (Hb) 8.7 g/dL (12.0-16.0); O2 Tension (PaO2), arterial 313.6 mmHg (> 60.0); Potassium - ABG Lab 5.06 mmol/L (3.70-5.30); pH, Arterial 7.47 (7.35-7.45)
[2020-03-13 11:11] LABS: Actual Bicarbonate (HCO3a) 22.6 mEq/L (22-28); Analyzer IN Cardio OR; Base Excess (BEa) -1.6 mEq/L (-2.0 to +3.0); CO2 Tension 36.1 mmHg (35.0-45.0); Calcium, Ionized (arterial) 1.09 mmol/L (1.12-1.30); Carboxyhemoglobin (COHb) 0.3 gm% (0.0-3.0); Hemoglobin (Hb) 9.1 g/dL (12.0-16.0); Potassium - ABG Lab 4.31 mmol/L (3.70-5.30); pH, Arterial 7.42 (7.35-7.45)
[2020-03-13 11:12] LABS: Actual Bicarbonate (HCO3a) 23.1 mEq/L (22-28); Analyzer IN Cardio OR; Base Excess (BEa) -4.9 mEq/L (-2.0 to +3.0); CO2 Tension 56.5 mmHg (35.0-45.0); Carboxyhemoglobin (COHb) 0.3 gm% (0.0-3.0); Hemoglobin (Hb) 11.5 g/dL (12.0-16.0); O2 Tension (PaO2), arterial 416.8 mmHg (> 60.0); Potassium - ABG Lab 3.46 mmol/L (3.70-5.30)
[2020-03-13 11:23] LABS: Puncture Site ALINE
[2020-03-13 11:25] LABS: Puncture Site ALINE
[2020-03-13 11:25] LABS: CO2 Tension 23.6 mmHg (35.0-45.0); Puncture Site ALINE
[2020-03-13 11:26] LABS: O2 Tension (PaO2), arterial 501.5 mmHg (> 60.0); Puncture Site ALINE
[2020-03-13 11:27] LABS: Puncture Site ALINE; pH, Arterial 7.23 (7.35-7.45)
[2020-03-13] MEDS: Artificial Tears 18 DROP/0.9 ML R EYE SCH ×2 (11:49→18:12)
[2020-03-13] MEDS ORDERED: Potassium Chloride 20 MEQ TAB PO SCH (12:00)
[2020-03-13 12:18] LABS: #Eosinphils 0.1 thou/uL (0.0-0.7); #Lymphocytes 1.6 thou/uL (1.20-3.40); #Monocytes 0.7 thou/uL (0.11-0.59); %Basophils 0.2 % (0.0-1.0); %Eosinophils 0.7 % (0.0-10.0); %Monocytes 6.1 % (0.0-10.0); Glucose 119 mg/dL (83-110); Hemoglobin 12.2 g/dL (12.0-16.0); MDiff Complete? YES; Mean Corpuscular HGB CONC 32.7 g/dL (32.0-36.0); Mean Corpuscular Hemoglobin 29.9 pg (27.0-31.0); Mean Corpuscular Volume 91.3 fL (78.0-98.0); Mean Platelet Volume 9.5 fL (7.4-10.4); Platelet Count 147 thou/uL (130-400); Platelet Morphology Comment Appears Adequate; Polychromasia SLIGHT = 2-3 cells (100X) (0-2/hpf); RBC Distribution Width 12.6 % (11.5-14.5); Red Blood Cell (RBC) Count 4.09 mill/uL (4.20-5.40); White Blood Cell (WBC) Count 11.4 thou/uL (4.8-10.8)
[2020-03-13 14:59] LABS: Chloride 105 mmol/L (98-107); Sodium 139 mmol/L (136-145)
[2020-03-13 15:01] LABS: Carbon Dioxide 24 mmol/L (23-31)
[2020-03-13 15:02] LABS: Calc. Creatinine Clearance 67 mL/min (70-130)
[2020-03-13 15:03] LABS: BUN (Urea Nitrogen) 14 mg/dL (9.8-20.1); Calcium 8.7 mg/dL (7.8-10.44); Estimated GFR-MDRD 79
[2020-03-13 15:05] LABS: Anion Gap 14 mmol/L (10-20)
[2020-03-13] MEDS: valACYclovir 500 MG TAB PO SCH ×2 (15:29→20:52)
[2020-03-13] MEDS: HYDROcodone/Acetaminophen 5/325 mg Tablet PO PRN (15:29)
[2020-03-13] MEDS ORDERED: Artificial Tear Sol 15 ML BOT EA EYE PRN (20:15)
[2020-03-13] MEDS: Atorvastatin Calcium 10 MG TAB PO SCH (20:52)
[2020-03-13] MEDS: Artificial Tear Sol 15 ML BOT R EYE SCH (20:53)
[2020-03-14 06:17] LABS: Anion Gap 12 mmol/L (10-20); BUN (Urea Nitrogen) 13 mg/dL (9.8-20.1); Calc. Creatinine Clearance 72 mL/min (70-130); Calcium 8.2 mg/dL (7.8-10.44); Carbon Dioxide 24 mmol/L (23-31); Chloride 107 mmol/L (98-107); Estimated GFR-MDRD 86; Glucose 103 mg/dL (83-110); Potassium 4.4 mmol/L (3.5-5.1); Sodium 139 mmol/L (136-145)
[2020-03-14] MEDS: Enoxaparin Sodium 30 MG/0.3 ML SYRINGE SC SCH (08:16)
[2020-03-14] MEDS: Furosemide 40 MG TAB PO SCH (08:16)
[2020-03-14] MEDS: Aspirin 325 mg Enteric Coated Tablet PO SCH (08:16)
[2020-03-14] MEDS: Polyethylene Glycol 3350 17 GM Packet PO SCH (08:16)
[2020-03-14] MEDS: Lisinopril 5 MG TAB PO SCH (08:16)
[2020-03-14] MEDS: valACYclovir 500 MG TAB PO SCH ×3 (08:16→21:07)
[2020-03-14] MEDS: Potassium Chloride 10 MEQ TAB PO SCH (08:17)
[2020-03-14] MEDS: Artificial Tear Sol 15 ML BOT R EYE SCH ×4 (10:21→21:07)
--- NOTE | 2020-03-14 11:27 | PDOC.HOSPP ---
- Subjective Encounter Date: 03/14/20 Encounter Time: 11:45 Subjective: Patient seen and examined for CAD. No new CP. Pain controlled. No new complaints. No overnight events - Objective Vital Signs & Weight: Vital Signs (12 hours) Temp Pulse Resp BP BP Pulse Ox 03/14/20 09:15 98.4 F 81 18 125/67 95 03/14/20 03:34 97.7 F 69 18 133/60 94 L Weight Weight 156 lb 9 oz Most Recent Monitor Data Heart Rate from ECG 79 NIBP 115/52 NIBP BP-Mean 73 Respiration from ECG 24 SpO2 99 I&O: 03/13/20 03/14/20 03/15/20 06:59 06:59 06:59 Intake Total 1490 1340 Output Total 950 Balance 540 1340 Result Diagrams: 03/13/20 11:24 03/14/20 05:55 EKG Reviewed by me: Yes (Tele SR) Hospitalist ROS - Review of Systems Respiratory: denies: cough, dry, shortness of breath, hemoptysis, SOB with excertion, pleuritic pain, sputum, wheezing, other Cardiovascular: denies: chest pain, palpitations, orthopnea, paroxysmal noc. dyspnea, edema, light headedness, other Gastrointestinal: denies: nausea, vomiting, abdominal pain, diarrhea, constipation, melena, hematochezia, other - Medication Medications: Active Medications Generic Name Dose Route Start Last Admin Trade Name Freq PRN Reason Stop Dose Admin Hydrocodone Bitart/Acetaminophen 1 tab 03/10/20 10:51 03/12/20 14:35 [place] 5/325 PO 1 tab Q4H PRN Administration Moderate Pain (4-6) Hydrocodone Bitart/Acetaminophen 2 tab 03/10/20 10:51 03/13/20 15:29 [place] 5/325 PO 2 tab Q4H PRN Administration Severe Pain (7-10) Artificial Tears 0 drop 03/13/20 21:00 03/14/20 11:19 Liquitears 15ml Bottle R EYE 2 drop QID ADRIEN Administration Aspirin 325 mg 03/11/20 09:00 03/14/20 08:16 Ecotrin PO 325 mg DAILY ADRIEN Administration Atorvastatin Calcium 10 mg 03/10/20 21:00 03/13/20 20:52 Lipitor PO 10 mg QPM ADRIEN Administration Bisacodyl 10 mg 03/11/20 07:11 03/13/20 09:45 Dulcolax PO 10 mg Q12H PRN Administration Constipation Enoxaparin Sodium 30 mg 03/12/20 09:00 03/14/20 08:16 Lovenox SC 30 mg 09 ADRIEN Administration Furosemide 40 mg 03/12/20 09:00 03/14/20 08:16 Lasix PO 40 mg DAILY ADRIEN Administration Lisinopril 5 mg 03/11/20 09:00 03/14/20 08:16 Zestril PO 5 mg DAILY ADRIEN Administration Pantoprazole Sodium 40 mg 03/11/20 09:00 03/14/20 08:17 Protonix PO 40 mg 09 ADRIEN Administration Polyethylene Glycol 17 gm 03/11/20 09:00 03/14/20 08:16 Miralax PO 17 gm DAILY ADRIEN Administration Potassium Chloride 10 meq 03/12/20 08:00 03/14/20 08:17 Klor-Con 10 PO 10 meq QAM-WM ADRIEN Administration Sodium Chloride 10 ml 03/13/20 21:00 03/14/20 08:18 Flush - Normal Saline IVF 10 ml Q12HR ADRIEN Administration Valacyclovir HCl 1,000 mg 03/13/20 15:00 03/14/20 08:16 Valtrex PO 1,000 mg TID ADRIEN Administration - Exam General Appearance: NAD Eye: PERRL ENT - other findings: Rt forehead skin lesions - improving Neck: supple, no JVD Heart: no gallops, no rubs Respiratory: no wheezes, no rales Gastrointestinal: soft, non-tender, no palpable masses Extremities: no cyanosis, no clubbing Neurological: no new deficit Psychiatric: A&O x 3 Hosp A/P - Plan DVT proph w/SCDs CP/Unstable angina/CAD with abnormal stress test -s/p cath -s/p CABG 03/10 Herpes Zoster -on Valtrex - day 2 New onset Afib -> SR -s/p 1 dose multaq HTN urgency Obesity BMI 31.6 CKD 2 Constipation PLAN: Cont Valtrex with artificial tears Monitor Cr while on Valtrex Await Ophthal input Cont ASA/Statins/Lisinopril Cont Lasix Cont cardiac rehab Cont supportive care DVT/GI prophylaxis Pain controlled
--- NOTE | 2020-03-14 16:20 | PDOC.CPN ---
- Subjective Date: 03/14/20 Time: 16:19 Interval history: She developed shingles on her right facial area. - Review of Systems General: denies: fever/chills, weight/appetite/sleep changes, night sweats, fatigue Respiratory: denies: cough, congestion, shortness of breath, exercise intolerance Cardiovascular: denies: chest pain, palpitation, edema, paroxysmal nocturnal dyspnea, orthopnea Gastrointestinal: denies: nausea, vomiting, diarrhea, constipation, abd pain, GI bleeding Musculoskeletal: reports: pain. denies: tenderness, stiffness, swelling, arthritis/arthralgias Neurological: denies: numbness, syncope, seizure, weakness - Objective Allergies/Adverse Reactions: Allergies Allergy/AdvReac Type Severity Reaction Status Date / Time Penicillins Allergy Verified 01/24/17 01:52 Visit Medications: Current Medications Acetaminophen (Tylenol) 650 mg PO Q6H PRN PRN Reason: Headache/Fever or Pain Last Admin: 03/14/20 15:37 Dose: 650 mg Hydrocodone Bitart/Acetaminophen ([place] 5/325) 1 tab PO Q4H PRN PRN Reason: Moderate Pain (4-6) Last Admin: 03/12/20 14:35 Dose: 1 tab Hydrocodone Bitart/Acetaminophen ([place] 5/325) 2 tab PO Q4H PRN PRN Reason: Severe Pain (7-10) Last Admin: 03/13/20 15:29 Dose: 2 tab Al Hydroxide/Mg Hydroxide (Maalox) 30 ml PO Q4H PRN PRN Reason: Indigestion Artificial Tears (Liquitears 15ml Bottle) 0 drop R EYE QID [facility] Last Admin: 03/14/20 15:37 Dose: 2 drop Artificial Tears (Liquitears 15ml Bottle) 2 drop EA EYE Q4H PRN PRN Reason: Dry Eyes Aspirin (Ecotrin) 325 mg PO DAILY [facility] Last Admin: 03/14/20 08:16 Dose: 325 mg Atorvastatin Calcium (Lipitor) 10 mg PO QPM [facility] Last Admin: 03/13/20 20:52 Dose: 10 mg Bisacodyl (Dulcolax) 10 mg PO Q12H PRN PRN Reason: Constipation Last Admin: 03/13/20 09:45 Dose: 10 mg Bisacodyl (Dulcolax) 10 mg [place] Q12H PRN PRN Reason: Constipation Enoxaparin Sodium (Lovenox) 30 mg SC 0900 [facility] Last Admin: 03/14/20 08:16 Dose: 30 mg Furosemide (Lasix) 40 mg PO DAILY [facility] Last Admin: 03/14/20 08:16 Dose: 40 mg Guaifenesin/Dextromethorphan (Robitussin Dm) 15 ml PO Q4H PRN PRN Reason: Cough Lisinopril (Zestril) 5 mg PO DAILY [facility] Last Admin: 03/14/20 08:16 Dose: 5 mg Mineral Oil (Fleet Mineral Oil) 133 ml [place] DAILYPRN PRN PRN Reason: Constipation Nitroglycerin (Nitrostat) 0.4 mg SL Q5MIN PRN PRN Reason: Chest Pain Ondansetron HCl (Zofran) 4 mg IVP Q6H PRN PRN Reason: Nausea/Vomiting Pantoprazole Sodium (Protonix) 40 mg PO 0900 [facility] Last Admin: 03/14/20 08:17 Dose: 40 mg Polyethylene Glycol (Miralax) 17 gm PO DAILY [facility] Last Admin: 03/14/20 08:16 Dose: 17 gm Potassium Chloride (Klor-Con 10) 10 meq PO QAM-WM [facility] Last Admin: 03/14/20 08:17 Dose: 10 meq Sodium Chloride (Flush - Normal Saline) 10 ml IVF Q12HR [facility] Last Admin: 03/14/20 08:18 Dose: 10 ml Sodium Chloride (Flush - Normal Saline) 10 ml IVF PRN PRN PRN Reason: Saline Flush Valacyclovir HCl (Valtrex) 1,000 mg PO TID [facility] Last Admin: 03/14/20 15:37 Dose: 1,000 mg Vital Signs & Weight: Vital Signs Temp Pulse Pulse Pulse Resp BP BP 03/14/20 15:49 98.0 F 80 12 03/14/20 11:58 97.9 F 88 18 03/14/20 10:05 89 86 139/64 144/66 H 03/14/20 09:15 98.4 F 81 18 BP Pulse Ox 03/14/20 15:49 103/59 L 95 03/14/20 11:58 128/60 97 03/14/20 10:05 03/14/20 09:15 125/67 95 Weight 156 lb 9 oz - Physical Exam General: alert & oriented x3 HEENT: mucus membranes moist Neck: supple neck Cardiac: regular rate and rhythm Lungs: clear to auscultation Neuro: grossly intact Abdomen: unremarkable Extremities: no edema Skin: clear Musculoskeletal: no pain - Labs Result Diagrams: 03/13/20 11:24 03/14/20 05:55 Troponin/CKMB Troponin I 0.067 ng/mL (< 0.028) H 03/06/20 11:04 - Telemetry Sinus rhythms and dysrhythmias: sinus rhythm - Assessment/Plan Assessment/Plan: 1. S/P CABG x 2 2. Post Operative afib 3. Shingles PLAN: - Continue PT as tolerate - Will add low dose BB to try to keep any more afib from recurring. - Continue other meds.
--- NOTE | 2020-03-14 19:13 | CON ---
DATE OF CONSULTATION: 03/14/2020 TIME: 1330 hours. REASON FOR CONSULTATION: Right herpes zoster ophthalmicus. HISTORY OF PRESENT ILLNESS: The patient is an 84-year-old woman, who had a coronary artery bypass graft on March 10, 2020. On March 12, 2020, vesicles of the right forehead suggesting herpes zoster ophthalmicus were noted and valacyclovir was begun. PHYSICAL EXAMINATION: On examination, near vision with +2.00D lens is J-7 for the right eye and J-10 for the left eye. Ferny-Pen intra-ocular pressure was 18 mmHg right and 25, 23 mmHg left. The pupils were small, reactive, without an afferent pupillary defect. Ocular motility was aligned and full. External examination showed clear fluid-filled vesicles of the right forehead, scalp, and zoroastrianism and right upper lid. There appeared to be no vesicles along the lid margin. The bulbar conjunctivae are quiet. The cornea was clear, without staining. 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 PLAN: She needs no further treatment by me. However, with the fairly significant decreased vision in the slightly elevated intraocular pressure of the left eye, she should obtain some long-term followup. I left my card on the order sheet with that instruction. However, I now notice that she lives in [place] and my recommendation would be for her to see one of the several ophthalmologists in [place], which is much closer. I will try to call her daughter and transfer that information to her also. Job ID: [id number] [id number]
[2020-03-14] MEDS: Atorvastatin Calcium 10 MG TAB PO SCH (21:07)
[2020-03-14] MEDS: HYDROcodone/Acetaminophen 5/325 mg Tablet PO PRN (22:49)
[2020-03-15 04:33] LABS: Anion Gap 11 mmol/L (10-20); BUN (Urea Nitrogen) 15 mg/dL (9.8-20.1); Calc. Creatinine Clearance 66 mL/min (70-130); Calcium 8.4 mg/dL (7.8-10.44); Carbon Dioxide 26 mmol/L (23-31); Chloride 105 mmol/L (98-107); Estimated GFR-MDRD 75; Glucose 95 mg/dL (83-110); Sodium 138 mmol/L (136-145)
[2020-03-15 08:21] VITALS: TEMP 98.5
[2020-03-15] MEDS: Lisinopril 5 MG TAB PO SCH (09:02)
[2020-03-15] MEDS: Furosemide 40 MG TAB PO SCH (09:02)
[2020-03-15] MEDS: Enoxaparin Sodium 30 MG/0.3 ML SYRINGE SC SCH (09:02)
[2020-03-15] MEDS: Aspirin 325 mg Enteric Coated Tablet PO SCH (09:02)
[2020-03-15] MEDS: Potassium Chloride 10 MEQ TAB PO SCH (09:02)
[2020-03-15] MEDS: Artificial Tear Sol 15 ML BOT R EYE SCH (09:03)
[2020-03-15] MEDS: Polyethylene Glycol 3350 17 GM Packet PO SCH (09:03)
[2020-03-15] MEDS: valACYclovir 500 MG TAB PO SCH (09:03)
[2020-03-15 13:06] VITALS: BP 106/57
--- NOTE | 2020-03-15 13:35 | DIS ---
DATE OF ADMISSION: 03/06/2020 DATE OF DISCHARGE: 03/15/2020 DISCHARGE DISPOSITION: Home. FOLLOWUP: 1. Follow up with primary care physician, Dr. Kiran Stanford on March 17, 2020. 2. Follow up with Dr. Ceron. 3. Cardiology, Dr. Mckeon. 4. Ophthalmology as scheduled. ALLERGIES: THE PATIENT IS ALLERGIC TO PENICILLIN. DISCHARGE MEDICATIONS: 1. Aspirin 325 mg daily. 2. Lipitor 10 mg daily. 3. Lasix 40 mg daily. 4. Lisinopril 5 mg daily. 5. Toprol-XL 12.5 mg daily. 6. Potassium chloride 10 mEq daily. 7. Tramadol as needed. 8. Valtrex 1 g three times daily for next 5 days. Repeat basic metabolic profile after 1 week is recommended. Primary care physician is advised to follow. The patient was seen on the day of discharge. Denies any new complaints. Vital signs showed temperature 98.8, pulse rate of 75, respirations of 18, blood pressure of 131/61 with O2 saturation 95% on room air. BRIEF HOSPITAL COURSE: The patient is an 84-year-old female with hypertension, presented to the emergency room with chest discomfort. Her initial troponins were in the indeterminate range. The patient was evaluated by Cardiology, Dr. Parmar. She underwent a Cardiolite stress test that showed elevated TID of 1.5 without any wall motion abnormalities. Echocardiogram showed ejection fraction of 60% to 65%. The patient underwent cardiac catheterization that showed 90% stenosis in the diagonal, 50% LAD stenosis, 30% RCA stenosis. The patient underwent coronary artery bypass grafting x2 on March 10, 2020. Postoperatively, the patient was monitored in the intensive care unit. Later, she was transferred to telemetry unit. During the end of the hospital stay, the patient started developing rash on her right forehead consistent with zoster. The patient was evaluated by Ophthalmology, Dr. Ace Castillo. The zoster did not involve the globe. The patient was, however, advised to follow up with ophthalmology as outpatient due to significantly elevated intra-ocular pressure of the left eye with decreased vision. The patient has been cleared by consultants for discharge. FINAL DIAGNOSES: 1. Chest discomfort consistent with unstable angina. 2. Abnormal stress test. 3. Coronary artery disease status post coronary artery bypass grafting x2. 4. Herpes zoster involving the trigeminal V1 distribution on the right. 5. New onset atrial fibrillation post coronary artery bypass grafting converted to sinus rhythm after 1 dose of Multaq. 6. Hypertensive urgency. 7. Obesity with a BMI of 31.6. 8. Chronic kidney disease, stage 2. 9. Constipation. 10. The patient was extensively counseled on lifestyle modification and medication compliance. The medications have been sent to the pharmacy. She understands the side effects of Valtrex. TIME SPENT: Time coordinating the discharge of this patient was 36 minutes. Job ID: [id number]
== END 2020-03-15 13:45 | disposition home or self-care (01) | DRG 234 ==
LOC: ERS 04:29 → INTOOBSV 04:51 → 2NO 04:51 → OBSVTOIN 04:51 → CCU 03-10 06:41 → 2NO 03-11 09:14
PROVIDERS: ADMIT Internal Medicine; ATTEND Internal Medicine
PROC: 02100Z9 Bypass Coronary Artery, One Artery from Left Internal Mammary, Open Approach (ICD-10-PCS; principal; 2020-03-10)
PROC: 021009W Bypass Coronary Artery, One Artery from Aorta with Autologous Venous Tissue, Open Approach (ICD-10-PCS; 2020-03-10)
PROC: 06BQ4ZZ Excision of Left Saphenous Vein, Percutaneous Endoscopic Approach (ICD-10-PCS; 2020-03-10)
PROC: 5A1221Z Performance of Cardiac Output, Continuous (ICD-10-PCS; 2020-03-10)
PROC: 4A023N7 Measurement of Cardiac Sampling and Pressure, Left Heart, Percutaneous Approach (ICD-10-PCS; 2020-03-10)
PROC: B2111ZZ Fluoroscopy of Multiple Coronary Arteries using Low Osmolar Contrast (ICD-10-PCS; 2020-03-10)
DX: I25.110 Atherosclerotic heart disease of native coronary artery with unstable angina pectoris (principal); B02.9 Zoster without complications; I12.9 Hypertensive chronic kidney disease with stage 1 through stage 4 chronic kidney disease, or unspecified chronic kidney disease; N18.2 Chronic kidney disease, stage 2 (mild); I16.0 Hypertensive urgency; K59.00 Constipation, unspecified; E66.9 Obesity, unspecified; I48.91 Unspecified atrial fibrillation; Z95.1 Presence of aortocoronary bypass graft; Z79.01 Long term (current) use of anticoagulants; Z68.31 Body mass index [BMI] 31.0-31.9, adult; Z91.14 Patient's other noncompliance with medication regimen; Z88.0 Allergy status to penicillin
CPT/HCPCS: 36415; 36416; 36430; 71045; 76942; 78452; 80048; 80061; 82805; 83036; 83735; 84484; 85007; 85025; 85027; 85610; 85730; 86850; 86900; 86901; 93005; 93010; 93017; 93306; 93454; 93798; 94760; 96360; 96361; 96372; 97139; A9500; G0378; J0280; J1642; J1644; J1650; J1815; J1885; J1956; J2001; J2250; J2405; J2440; J2720; J2785; J3010; J3370; J3475; J3480; J3490; P9045; Q9967; S0017; S0028